=== PATIENT | female | born 2005 | race Caucasian/White ===

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

== ENCOUNTER 2023-04-29 17:36 | Emergency (ER) | payer MEDICAID | END 2023-04-29 19:08 | disposition home or self-care (01) | LOC: JP.ED 17:36 | DX: N92.1 Excessive and frequent menstruation with irregular cycle (principal); E66.9 Obesity, unspecified; Z91.040 Latex allergy status; Z91.048 Other nonmedicinal substance allergy status; Z79.899 Other long term (current) drug therapy; Z90.49 Acquired absence of other specified parts of digestive tract; Z68.36 Body mass index [BMI] 36.0-36.9, adult | CPT/HCPCS: 99282; 99283 ==